=== PATIENT | female | born 1955 | race Hispanic/Latino ===

== ENCOUNTER 2017-07-10 23:10 | Emergency (ER) | payer BC | END 2017-07-11 00:56 | disposition home or self-care (01) | LOC: EDH 23:10 | DX: J20.9 Acute bronchitis, unspecified (principal); G43.909 Migraine, unspecified, not intractable, without status migrainosus; Z90.49 Acquired absence of other specified parts of digestive tract; Z90.710 Acquired absence of both cervix and uterus | CPT/HCPCS: 99281 ==